=== PATIENT | male | born 1975 | race Caucasian/White ===

== ENCOUNTER 2017-06-19 13:10 | Emergency (ER) | payer OTHER ==
[~2017-06-19] VITALS: Ht 172.7 cm; Wt 91.8 kg
[~2017-06-19 13:10] MED LIST: ALEVE220 M2 PO; CRANBERRY 4001 EAC1 PO; FLEXERIL10 MG PO; GABAPENTIN300 MG PO; MELOXICAM15 MG PO; METHOCARBAMOL750 MG PO; MOTRIN600 MG PO; NORCO 5/3251 TABLET PO; NORCO 7.5/321 TABLET PO; SAW PALMETTO160 MG PO; SERTRALINE HCL100 MG PO; TRAMADOL HCL50 MG PO; TYLENOL EXTRA500 MG PO; TYLENOL REGULA325 MG PO; ZOLOFT100 MG PO
[2017-06-19] MEDS ORDERED: MEDROL DOSEPAK4 MG PO (15:35)
[2017-06-19] MEDS ORDERED: NEURONTIN300 MG PO (15:35)
[2017-06-19 15:49] LABS: POINT-OF-CARE METER ID UU13113800
[2017-06-19 15:53] VITALS: BP 135/86
== END 2017-06-19 15:57 | disposition home or self-care (01) ==
LOC: EME 13:10
PROVIDERS: Physician Assistant
DX: M54.41 Lumbago with sciatica, right side (principal); M54.42 Lumbago with sciatica, left side; R73.9 Hyperglycemia, unspecified; G89.29 Other chronic pain; R73.03 Prediabetes; F17.200 Nicotine dependence, unspecified, uncomplicated; Z91.14 Patient's other noncompliance with medication regimen
CPT/HCPCS: 82948; 99281; 99283

== ENCOUNTER 2017-06-27 19:32 | Emergency (ER) | payer OTHER ==
[~2017-06-27] VITALS: Ht 172.7 cm; Wt 92.4 kg
[~2017-06-27 19:32] MED LIST changes: +MEDROL DOSEPAK4 MG PO; +NEURONTIN300 MG PO
[2017-06-27] MEDS ORDERED: LIDODERM 5% P1 PATCH TD (21:18)
[2017-06-27] MEDS ORDERED: FLEXERIL10 MG PO (21:30)
[2017-06-27 21:54] VITALS: BP 130/86
== END 2017-06-27 21:59 | disposition home or self-care (01) ==
LOC: RME 19:32 → EME 19:32 → RME 21:59
DX: M54.16 Radiculopathy, lumbar region (principal); M25.552 Pain in left hip
CPT/HCPCS: 72100; 73502; 99281; 99284; J1885; J2930

== ENCOUNTER → 2017-10-25 | Outpatient (CLI) | payer OTHER ==
[~2017-10-25] MED LIST changes: +LIDODERM 5% P1 PATCH TD
== END | disposition home or self-care (01) ==
DX: M16.11 Unilateral primary osteoarthritis, right hip (principal); R26.2 Difficulty in walking, not elsewhere classified; M25.551 Pain in right hip; M25.651 Stiffness of right hip, not elsewhere classified; Z74.1 Need for assistance with personal care
CPT/HCPCS: 97161 GP; 97165 GO; 97530 GP; 97535 GO

== ENCOUNTER 2017-11-14 21:48 | Inpatient (IN) | payer OTHER ==
[~2017-11-14] VITALS: Ht 172.7 cm; Wt 107.4 kg
[~2017-11-14 21:48] MED LIST changes: +CYMBALTA30 MG PO; +MOTRIN800 MG PO; +PERCOCET 10/1 TABLET PO; +ZESTRIL10 MG PO; +ZOCOR10 MG PO
[2017-11-15 05:56] VITALS: BP 133/80
[2017-11-15 10:47] LABS: HEMATOCRIT 41.2 % (38.0-50.0); HEMOGLOBIN 14.1 G/DL (12.5-16.6); MCV 93.8 FL (86-99)
[2017-11-15 16:36] VITALS: BP 167/85
[2017-11-15 18:28] VITALS: BP 141/75
[2017-11-15 20:09] VITALS: BP 162/78
[2017-11-16 00:21] VITALS: BP 150/81
[2017-11-16 04:19] VITALS: BP 145/79
[2017-11-16 07:32] VITALS: BP 140/68
[2017-11-16 08:06] LABS: HEMATOCRIT 36.7 % (38.0-50.0); HEMOGLOBIN 12.9 G/DL (12.5-16.6); MCV 92.9 FL (86-99)
[2017-11-16 12:08] VITALS: BP 149/70
[2017-11-16 16:00] VITALS: BP 136/68
[2017-11-16 20:27] VITALS: BP 137/72
[2017-11-17] VITALS (7 sets, daily range): BP systolic 103–131; BP diastolic 58–78
[2017-11-17] MEDS ORDERED: ELIQUIS2.5 MG PO ×2 (08:50→09:07)
[2017-11-17] MEDS ORDERED: OXYCONTIN10 MG PO (08:50)
[2017-11-17] MEDS ORDERED: OXYCODONE HCL5 MG PO (08:50)
[2017-11-17] MEDS ORDERED: CYCLOBENZAPRINE10 MG PO (08:50)
[2017-11-17 09:51] LABS: HEMATOCRIT 37.3 % (38.0-50.0); HEMOGLOBIN 13.1 G/DL (12.5-16.6); MCV 91.4 FL (86-99)
[2017-11-18 03:55] VITALS: BP 135/58
[2017-11-18 08:26] VITALS: BP 126/61
[2017-11-18 12:04] VITALS: BP 130/62
== END 2017-11-18 13:21 | DRG 470 ==
LOC: ENRESERV 21:48 → 2SOUTH 11-15 05:41 → 3WEST 11-15 05:41 → 3EAST 11-15 05:41 → ENRESERV 11-15 11:58 → 2SOUTH 11-15 14:03 → 3WEST 11-15 15:26 → 2SOUTH 11-15 16:48 → 3WEST 11-17 10:18 → ENRESERV 11-17 10:20 → 3EAST 11-17 18:31
PROVIDERS: Orthopaedic Surgery; Physician Assistant
PROC: 0SR902A Replacement of Right Hip Joint with Metal on Polyethylene Synthetic Substitute, Uncemented, Open Approach (ICD-10-PCS; principal; 2017-11-15)
DX: M87.9 Osteonecrosis, unspecified (principal); I10 Essential (primary) hypertension; E11.9 Type 2 diabetes mellitus without complications; E78.5 Hyperlipidemia, unspecified; F32.9 Major depressive disorder, single episode, unspecified; F41.9 Anxiety disorder, unspecified; F51.04 Psychophysiologic insomnia; F12.90 Cannabis use, unspecified, uncomplicated; F10.10 Alcohol abuse, uncomplicated; F17.210 Nicotine dependence, cigarettes, uncomplicated; E66.9 Obesity, unspecified; Z68.35 Body mass index [BMI] 35.0-35.9, adult
CPT/HCPCS: 36415; 71045; 80053; 82948; 85014; 85018; 85025; 85610; 85652; 85730; 86140; 86850; 86900; 86901; 87081; 87641; 97530 GO; J0131; J0690; J1170; J1815; J2250; J2405; J2710; J7120; S0020

== ENCOUNTER 2018-03-10 19:42 | Observation (INO) | payer OTHER ==
[~2018-03-10] VITALS: Ht 172.7 cm; Wt 102.5 kg
[~2018-03-10 19:42] MED LIST changes: +CYCLOBENZAPRINE10 MG PO; +ELIQUIS2.5 MG PO; +OXYCODONE HCL5 MG PO; +OXYCONTIN10 MG PO
[2018-03-10 22:19] LABS: PLATELET COUNT 168 K/uL (156-360)
[2018-03-10 22:20] LABS: CARBON DIOXIDE (BICARBONATE) 26.6 MEQ/L (20-31)
[2018-03-10 22:23] LABS: ALBUMIN 4.1 g/dL (3.2-4.8)
[2018-03-10 22:24] LABS: CHLORIDE 88 mEq/L (99-109)
[2018-03-10 22:26] LABS: TOTAL PROTEIN 7.2 g/dL (6.4-8.3)
[2018-03-10 22:28] LABS: TOTAL BILIRUBIN 0.7 mg/dL (0.0-1.0)
[2018-03-10 22:29] LABS: ALKALINE PHOSPHATASE 178 IU/L (3-129)
[2018-03-10 22:30] LABS: CREATININE 1.1 mg/dL (0.6-1.3); GFR ESTIMATE (CALCULATED) > 59 mL/min/ (58.99-99999)
[2018-03-10 22:31] LABS: AST (GOT) 57 IU/L (2-34); UREA NITROGEN (BUN) 8 mg/dL (9-23)
[2018-03-10 22:33] LABS: ALT (GPT) 87 IU/L (3-49); LIPASE 39 U/L (1.0-51.0)
[2018-03-10 22:39] LABS: GLUCOSE 545 mg/dL (70-99); SODIUM 126 mEq/L (136-147)
[2018-03-10 22:51] LABS: HEMATOCRIT 35.8 % (38.0-50.0); HEMOGLOBIN 13.3 G/DL (12.5-16.6); MCH 31.3 PG (29.0-34.0); MCHC 36.5 G/DL (30.0-36.0); MCV 85.4 FL (86-99); RBC DIS.WIDTH-CV 12.3 % (11.8-14.6); RBC DIS.WIDTH-SD 37.9 % (39-53); RED BLOOD COUNT 4.19 M/uL (4.00-5.50)
[2018-03-10 23:04] LABS: APPEARANCE CLEAR ((CLEAR)); BILIRUBIN NEGATIVE; BLOOD NEGATIVE; COLOR COLORLESS ((YELLOW)); GLUCOSE (STRIP) >=500; KETONES 5; LEUKOCYTES NEGATIVE; NITRITE NEGATIVE; PROTEIN (STRIP) NEGATIVE; SPECIFIC GRAVITY 1.032 (1.000-1.030); UCUL ADDED? NO; UROBILINOGEN 0.2 MG/DL (0.2-1.0)
[2018-03-11 02:00] VITALS: BP 114/58
[2018-03-11 05:38] LABS: HEMATOCRIT 33.3 % (38.0-50.0); HEMOGLOBIN 11.9 G/DL (12.5-16.6); MCH 31.2 PG (29.0-34.0); MCHC 35.7 G/DL (30.0-36.0); MCV 87.2 FL (86-99); PLATELET COUNT 150 K/uL (156-360); RBC DIS.WIDTH-CV 12.5 % (11.8-14.6); RBC DIS.WIDTH-SD 39.8 % (39-53); RED BLOOD COUNT 3.82 M/uL (4.00-5.50); WHITE BLOOD COUNT 6.2 K/uL (4.1-10.2)
[2018-03-11 06:02] LABS: ALBUMIN 3.2 G/DL (3.2-4.8); ALKALINE PHOSPHATASE 112 IU/L (3-129); ALT (GPT) 57 IU/L (3-49); AST (GOT) 36 IU/L (2-34); CHLORIDE 99 MEQ/L (99-109); CREATININE 0.7 MG/DL (0.6-1.3); DIRECT BILIRUBIN 0.2 mg/dL (0.0-0.3); GFR ESTIMATE (CALCULATED) > 59 mL/min/ (58.99-99999); POTASSIUM 3.3 MEQ/L (3.7-5.4); TOTAL BILIRUBIN 0.7 MG/DL (0.0-1.0); TOTAL PROTEIN 5.4 G/DL (6.4-8.3); UREA NITROGEN (BUN) 8 mg/dL (9-23)
[2018-03-11 06:38] LABS: GLUCOSE 233 mg/dL (70-99); SODIUM 136 MEQ/L (136-147)
[2018-03-11 07:37] VITALS: BP 147/68
[2018-03-11] MEDS ORDERED: METFORMIN HCL1000 MG PO ×2 (08:46→09:17)
[2018-03-11] MEDS ORDERED: NOVOLIN N100 UNITS/ SC ×2 (08:46→09:17)
[2018-03-11] MEDS ORDERED: GLIPIZIDE5 MG PO ×2 (09:05→09:18)
== END 2018-03-11 09:54 | disposition home or self-care (01) ==
LOC: EME 19:42 → EDOF 23:58 → ENRESERV 23:59 → 5SOUTH 03-11 01:38
PROVIDERS: Hospitalist; Physician Assistant
DX: E11.65 Type 2 diabetes mellitus with hyperglycemia (principal); I10 Essential (primary) hypertension; K76.0 Fatty (change of) liver, not elsewhere classified; G89.4 Chronic pain syndrome; M54.9 Dorsalgia, unspecified; F11.20 Opioid dependence, uncomplicated; M87.851 Other osteonecrosis, right femur; M87.852 Other osteonecrosis, left femur; F17.200 Nicotine dependence, unspecified, uncomplicated; E86.0 Dehydration; Z79.4 Long term (current) use of insulin; Z91.19 Patient's noncompliance with other medical treatment and regimen
CPT/HCPCS: 76705; 80048; 80053; 80076; 81003; 82010; 82803; 82948; 83690; 85027; 99281; 99285; G0378; J1650; J1815; J2405; J3480; J7030